=== PATIENT | female | born 1950 | race Two or more races ===

== ENCOUNTER 2016-04-30 10:29 | Emergency (ER) | payer SELFPAY ==
[~2016-04-30] VITALS: Ht 144.8 cm; Wt 80.7 kg
[~2016-04-30 10:29] MED LIST: CIPR-262 PO; PANT40TA2 PO
[2016-04-30 10:47] VITALS: BP 136/85
== END 2016-04-30 11:21 | disposition home or self-care (01) ==
LOC: ER 10:31
DX: S61.211D Laceration without foreign body of left index finger without damage to nail, subsequent encounter (principal)
CPT/HCPCS: 99281; A4606; Z7610; Z7502

== ENCOUNTER 2016-09-01 22:40 | Emergency (ER) | payer MEDICAID ==
[~2016-09-01] VITALS: Ht 144.8 cm; Wt 85.3 kg
--- NOTE | 2016-09-01 23:05 | NUR ---
PT AMBULATED TO THE BATHROOM FROM THE LOBBY. URINE SAMPLE OBTAINED AND PT WAS TAKEN TO ROOM #2. PT CHANGED INTO A GOWN AND PLACED ON THE MONITOR AND CONTINUOUS PULSE OX.
--- NOTE | 2016-09-01 23:18 | NUR ---
DR. FAROOQ IS AT THE BEDSIDE.
[2016-09-01] MEDS ORDERED: HYDROMORPHONE 1 MG/1 ML DISP.SYRIN ONE (23:26)
[2016-09-01] MEDS ORDERED: ONDANSETRON HCL/PF 4 MG/2 ML VIAL ONE (23:26)
[2016-09-01] MEDS ORDERED: ONDANSETRON 4 MG TAB.RAPDIS SL ONE (23:30)
[2016-09-01] MEDS ORDERED: HYDROMORPHONE INJ 2 MG/ML DISP.SYRIN IM ONE (23:30)
[2016-09-01] MEDS ORDERED: ONDANSETRON 4 MG TAB.RAPDIS ONE (23:33)
[2016-09-01 23:40] LABS: BASOPHILS % (AUTO) 0.2 % (0.0-2.0); EOSINOPHILS # (AUTO) 0.3 /CMM (0.0-0.7); EOSINOPHILS % (AUTO) 2.5 % (0.0-6.0); HEMATOCRIT 40 % (33-45); HEMOGLOBIN 12.7 g/dL (11.5-14.8); LYMPHOCYTES # (AUTO) 2.5 /CMM (0.8-4.8); LYMPHOCYTES % (AUTO) 22.7 % (20.0-44.0); MEAN CORPUSCULAR HEMOGLOBIN 27 PG (26.0-33.0); MEAN CORPUSCULAR HGB CONC 32 g/dl (31.0-36.0); MEAN CORPUSCULAR VOLUME 83 fL (82-100); MONOCYTES # (AUTO) 0.7 /CMM (0.1-1.30); MONOCYTES % (AUTO) 6.9 % (2.0-12.0); NEUTROPHILS # (AUTO) 7.3 /CMM (1.8-8.9); NEUTROPHILS % (AUTO) 67.7 % (43.0-81.0); PLATELET COUNT (AUTO) 328 /CMM (150-450); RDW COEFFICIENT OF VARIATION 13.9 (11.5-15.0); RED BLOOD CELL COUNT(AUTO) 4.77 MIL/uL (4.0-5.2); WHITE BLOOD COUNT (AUTO) 10.9 K/uL (4.3-11.0)
[2016-09-01 23:45] LABS: APPEARANCE,URINE CLEAR (CLEAR); BILIRUBIN,URINE NEGATIVE (NEGATIVE); BLOOD, URINE NEGATIVE Ery/uL (NEGATIVE); COLOR,URINE YELLOW (YELLOW); KETONES,URINE NEGATIVE (NEGATIVE); LEUKOCYTE ESTERASE ,URINE NEGATIVE (NEGATIVE); NITRITE, URINE NEGATIVE (NEGATIVE); PROTEIN,URINE NEGATIVE (NEGATIVE); UGLUCOSE NEGATIVE (NEGATIVE); UROBILINOGEN,URINE 0.2 EU/dL (0.2)
--- NOTE | 2016-09-01 23:45 | NUR ---
PT LEFT FOR CT.
[2016-09-01 23:51] LABS: CALCIUM, SERUM 8.6 mg/dL (8.5-10.1); CREATININE 0.9 mg/dL (0.6-1.3); POTASSIUM 4.1 mmol/L (3.5-5.1)
--- NOTE | 2016-09-01 23:55 | NUR ---
PT RETURNED FROM CT.
[2016-09-01 23:56] LABS: INR 0.89 (0.87-1.13); PROTHROMBIN TIME 9.5 SECS (9.5-12.7)
[2016-09-01 23:57] LABS: ALBUMIN 3.2 g/dL (3.4-5.0); BILIRUBIN,DIRECT 0.1 mg/dL (0.0-0.2); BILIRUBIN,TOTAL 0.6 mg/dL (0.2-1.0); TOTAL PROTEIN, SERUM 7.2 g/dL (6.4-8.2)
--- NOTE | 2016-09-02 01:10 | NUR ---
PO CHALLENGE DONE AND PT TOLERATED PO WELL. NO C/O N/V OR ABD PAIN.
--- NOTE | 2016-09-02 01:15 | NUR ---
DR. 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
[2016-09-02 01:45] VITALS: BP 128/81
--- NOTE | 2016-09-02 01:46 | NUR ---
Patient discharged to home in stable condition. Written and verbal after care instructions given. Patient verbalizes understanding of instruction. Pt ambulatory with a steady gait. VSS, NAD noted on DC. Denies complaint on DC.
== END 2016-09-02 01:50 | disposition home or self-care (01) ==
LOC: ER 22:42
DX: K45.8 Other specified abdominal hernia without obstruction or gangrene (principal)
CPT/HCPCS: 36415; 80048-TC; 80076-TC; 81000-TC; 83690-TC; 85025-TC; 85730-TC; A4606; J1170; J2405; Q0162; Z7610

== ENCOUNTER 2016-09-02 23:28 | Emergency (ER) | payer MEDICAID ==
[~2016-09-02] VITALS: Ht 152.4 cm; Wt 77.1 kg
[2016-09-02 23:36] VITALS: BP 137/104
== END 2016-09-02 23:57 | disposition home or self-care (01) ==
LOC: ER 23:28
DX: K46.9 Unspecified abdominal hernia without obstruction or gangrene (principal)
CPT/HCPCS: 99282; A4606; Z7610

== ENCOUNTER 2017-08-12 07:57 | Emergency (ER) | payer MEDICAID ==
[~2017-08-12] VITALS: Ht 147.3 cm; Wt 80.3 kg
--- NOTE | 2017-08-12 08:00 | NUR ---
left sided chest pain and sob x 2 days ago. nad noted. pt aao x4, amb with steady gait. rr even and unlabored pending md purvis.
[2017-08-12 08:19] LABS: BASOPHILS % (AUTO) 0.4 % (0.0-2.0); EOSINOPHILS % (AUTO) 1.9 % (0.0-6.0); HEMATOCRIT 40 % (33-45); HEMOGLOBIN 12.9 g/dL (11.5-14.8); LYMPHOCYTES # (AUTO) 2.3 /CMM (0.8-4.8); LYMPHOCYTES % (AUTO) 27.8 % (20.0-44.0); MEAN CORPUSCULAR HGB CONC 32 g/dl (31.0-36.0); MEAN CORPUSCULAR VOLUME 83 fL (82-100); MONOCYTES # (AUTO) 0.6 /CMM (0.1-1.30); MONOCYTES % (AUTO) 7.2 % (2.0-12.0); NEUTROPHILS # (AUTO) 5.1 /CMM (1.8-8.9); NEUTROPHILS % (AUTO) 62.7 % (43.0-81.0); PLATELET COUNT (AUTO) 323 /CMM (150-450); RDW COEFFICIENT OF VARIATION 13.9 (11.5-15.0); RED BLOOD CELL COUNT(AUTO) 4.77 MIL/uL (4.0-5.2); WHITE BLOOD COUNT (AUTO) 8.1 K/uL (4.3-11.0)
[2017-08-12 08:41] LABS: TROPONIN I < 0.017 ng/mL (0.00-0.056)
[2017-08-12 08:46] LABS: ALANINE AMINOTRANSFERASE 72 U/L (12-78); ALKALINE PHOSPHATASE 122 U/L (46-116); ASPARTATE AMINOTRANSFERASE 34 U/L (15-37); B-TYPE NATRIURETIC PEPTIDE 64 PG/ML (0-125); BILIRUBIN,DIRECT 0.1 mg/dL (0.0-0.2); BILIRUBIN,TOTAL 0.5 mg/dL (0.2-1.0); CALCIUM, SERUM 8.5 mg/dL (8.5-10.1); CARBON DIOXIDE 26 mmol/L (21-32); CHLORIDE 103 mmol/L (98-107); CREATININE 0.9 mg/dL (0.6-1.3); SODIUM SERUM 139 mmol/L (136-145); UREA NITROGEN, BLOOD 11 mg/dL (7-18)
[2017-08-12 08:49] LABS: GLUCOSE 397 mg/dL (74-106)
[2017-08-12 09:17] LABS: INR 0.88 (0.87-1.13)
[2017-08-12] MEDS ORDERED: KETOROLAC TROMETHAMINE INJ 30 MG/ML VIAL ONE (09:56)
[2017-08-12] MEDS ORDERED: KETOROLAC TROMETHAMINE INJ 30 MG/ML VIAL IV ONE (10:00)
[2017-08-12] MEDS ORDERED: IV NS 0.9% 1,000 ML BAG IV ONE (10:00)
--- NOTE | 2017-08-12 10:57 | NUR ---
IV removed. Catheter intact and site benign. Pressure and 4x4 applied to site. No bleeding noted.Patient discharged to home in stable condition. Written and verbal after care instructions given. Patient verbalizes understanding of instruction.
[2017-08-12 10:58] VITALS: BP 148/92
== END 2017-08-12 11:01 | disposition home or self-care (01) ==
LOC: ER 07:59
DX: R07.89 Other chest pain (principal); E66.9 Obesity, unspecified; R73.9 Hyperglycemia, unspecified
CPT/HCPCS: 36415; 71045-TC; 80048-TC; 80076-TC; 82962-TC; 83880; 84484-TC; 85025-TC; 85730-TC; A4606; J1885; J7030; Z7610